=== PATIENT | female | born 1990 | race Caucasian/White ===

== ENCOUNTER 2016-06-18 00:50 | Emergency (ER) | payer MEDICAID ==
[2016-06-18] MEDS ORDERED: ONDANSETRON 4 MG VIAL ONE (01:37)
[2016-06-18] MEDS ORDERED: SODIUM CHLORIDE 0.9% 1,000 ML ONE (01:37)
[2016-06-18] MEDS ORDERED: PROMETHAZINE 25 MG/ML VIAL ONE (02:39)
[2016-06-18] MEDS ORDERED: DILAUDID 1 MG/ML AMP ONE ×2 (02:40→04:42)
[2016-06-18] MEDS ORDERED: SODIUM CHLORIDE 0.9% 50 ML IV ONE (02:42)
== END 2016-06-18 08:54 | disposition home or self-care (01) ==
LOC: ER 00:50
DX: R10.32 Left lower quadrant pain (principal); N39.0 Urinary tract infection, site not specified
CPT/HCPCS: 36415; 74176; 80053; 81001; 83690; 84703; 85025; 87077; 87088; 87186; 96361; 96365; 96375; 96376

== ENCOUNTER 2016-06-23 17:27 | Emergency (ER) | payer MEDICAID ==
[2016-06-23] MEDS ORDERED: MORPHINE 4 MG/ML SYR ONE (21:36)
[2016-06-23] MEDS ORDERED: ONDANSETRON 4 MG VIAL ONE (21:36)
[2016-06-23] MEDS ORDERED: CEFTRIAXONE 1 GM VIAL ONE (21:52)
[2016-06-23] MEDS ORDERED: SODIUM CHLORIDE 0.9% 100 ML IV ONE ×2 (21:52→23:28)
[2016-06-23] MEDS ORDERED: DIPHENHYDRAMINE 50 MG/ML VIAL ONE (21:52)
[2016-06-23] MEDS ORDERED: PROMETHAZINE 25 MG/ML VIAL ONE (23:27)
[2016-06-23] MEDS ORDERED: TRAMADOL 50 MG TAB ONE (23:27)
== END 2016-06-24 00:23 | disposition home or self-care (01) ==
LOC: ER 17:27
DX: N30.01 Acute cystitis with hematuria (principal); N83.201 Unspecified ovarian cyst, right side; R11.2 Nausea with vomiting, unspecified
CPT/HCPCS: 36415; 74000; 76830; 80053; 81001; 83690; 84703; 85025; 87077; 87088; 87186; 87491; 87591; 87800; 87804; 96365; 96367; 96375